=== PATIENT | male | born 1965 | race African-American/Black ===

== ENCOUNTER 2016-06-09 18:31 | Emergency (ER) | payer OTHER ==
[2016-06-09 19:00] VITALS: BP 114/69; PULSE 67; TEMP 98; BMI 27.4
[2016-06-09] MEDS ORDERED: IBUPROFEN 600 MG TABLET (FP) PO ONE ×2 (19:51→19:58)
--- NOTE | 2016-06-09 19:59 | PDOC ---
History of Present Illness - General Chief Complaint: Pain Stated Complaint: RT WRIST PAIN Time Seen by Provider: 06/09/16 19:21 History Source: Patient Exam Limitations: No Limitations - History of Present Illness Initial Comments: 06/09/16 19:54 CC pain and weakness to right wrist intermit > 1year with tingling in fingers this week, hx same > 1 year; works as chief, increases at bedtime Occurred: reports: other (> 1YEAR) Upper Extremity Pain Location: right: thumb, 2nd finger, hand, wrist Past History - Past Medical History Allergies/Adverse Reactions: Allergies Allergy/AdvReac Type Severity Reaction Status Date / Time No Known Allergies Allergy Verified 06/09/16 18:56 Home Medications: Ambulatory Orders Methocarbamol [Robaxin -] 1,000 mg PO BID #28 tablet 01/31/16 Naproxen [Naprosyn -] 500 mg PO BID #14 tablet 01/31/16 Other medical history: broken rt wrist. - Psycho/Social/Smoking Cessation Hx Anxiety: No Suicidal Ideation: No Smoking History: Current every day smoker Have you smoked in the past 12 months: Yes Number of Cigarettes Smoked Daily: 30 Information on smoking cessation initiated: Yes 'Breaking Loose' booklet given: 06/09/16 Hx Alcohol Use: No Drug/Substance Use Hx: No Review of Systems - Review of Systems Constitutional: Yes: Chills. No: Symptoms Reported, Fever, Weakness HEENTM: No: Nose Pain, Nose Congestion Respiratory: No: Symptoms reported, Cough Cardiac (ROS): No: Symptoms Reported, Chest Pain ABD/GI: No: Symptoms Reported Musculoskeletal: Yes: Joint Pain, Joint Swelling. No: Neck Pain, Joint Stiffness Integumentary: No: Bruising, Erythema, Lesions Neurological: Yes: Tingling. No: Symptoms reported *Physical Exam - Vital Signs Last Vital Signs Temp Pulse Resp BP Pulse Ox 98.0 F 67 18 114/69 100 06/09/16 18:57 06/09/16 18:57 06/09/16 18:57 06/09/16 18:57 06/09/16 18:57 - Physical Exam General Appearance: Yes: Appropriately Dressed. No: Apparent Distress HEENT: positive: TMs Normal, Pharynx Normal Neck: positive: Supple. negative: Tender, Rigid, Tender lateral, Tender midline Respiratory/Chest: positive: Lungs Clear Neurologic: positive: Fully Oriented, Alert, Normal Mood/Affect, Numbness, Sensory Deficit Deep Tendon Reflexes: Bicep (L): 2+, Bicep (R): 2+, Tricep (L): 2+, Tricep (R): 2+ Medical Decision Making - Medical Decision Making 06/09/16 19:58 NO PCP, WILL REFER TO DR SELBY; WILL SUGGEST NSAIDS AND WRIST SPLINT AT WORK AND AT SLEEP *DC/Admit/Observation/Transfer Diagnosis at time of Disposition: Carpal tunnel syndrome of right wrist - Discharge Dispostion Disposition: HOME Condition at time of disposition: Stable Admit: No - Referrals Referrals: Jessica Champion [Primary Care Provider] - Bridger Selby MD [Staff Physician] - - Patient Instructions Additional Instructions: [employer]; CALL AND SEE DR SELBY REEVALUATION 10 DAYS; WEAR SPLINT AT BEDTIME ANDAT WORK NEEDED - Post Discharge Activity Work/School Note: Back to Work
== END 2016-06-09 20:14 | disposition home or self-care (01) ==
LOC: JERFT 18:31
DX: G56.01 Carpal tunnel syndrome, right upper limb (principal); F17.210 Nicotine dependence, cigarettes, uncomplicated
CPT/HCPCS: 99281-25

== ENCOUNTER 2022-05-04 13:21 | Emergency (ER) | payer BC, OTHER ==
[2022-05-04 13:31] VITALS: BP 119/63; PULSE 91; RESP 18; TEMP 99.6; BMI 25.8
== END 2022-05-04 15:51 | disposition home or self-care (01) ==
LOC: JER 13:21
DX: U07.1 COVID-19 (principal)
CPT/HCPCS: 0241U-QW; 71046-TC-FY; 99284-25